=== PATIENT | male | born 1960 | race African-American/Black ===

== ENCOUNTER 2017-10-25 11:23 | Inpatient (IN) | payer OTHER ==
[~2017-10-25] VITALS: Ht 198.1 cm; Wt 123.8 kg
[2017-10-25 12:27] LABS: Basophils # (auto) 0.1 uL; Basophils % (auto) 0.8 % (0.0-2.0); Eosinophils # (auto) 0 uL; Eosinophils % (auto) 0.5 % (0.0-7.0); Hematocrit 45.8 % (41.0-53.0); Hemoglobin 14.8 g/dL (13.5-17.5); Lymphocytes # (auto) 1.9 uL; Lymphocytes % (auto) 28.4 % (10.0-50.0); Mean Corpuscular Hemoglobin 30.9 pg (28.0-32.0); Mean Corpuscular Hgb Conc. 32.4 g/dL (32.0-36.0); Mean Corpuscular Volume 95.3 fL (80.0-100.0); Monocytes # (auto) 0.6 uL; Monocytes % (auto) 8.5 % (0.0-12.0); Neutrophils # (auto) 4.1 uL; Neutrophils % (auto) 61.8 % (37.0-80.0); Nucleated Red Blood Cells % 0.2 %; Platelet Count (auto) 245 10^3/uL (140-450); White Blood Cell 6.6 10^3/uL (4.4-10.8)
[2017-10-25 12:39] LABS: Albumin 3.7 g/dL (3.4-5.0); BUN/Creatinine Ratio 16.1; Bilirubin, Total 0.4 mg/dL (0.2-1.0); Calcium 8.6 mg/dL (8.5-10.1); Magnesium 2.7 mg/dL (1.6-2.6); Potassium 3.7 mmol/L (3.5-5.1); Total Protein 8.2 g/dL (6.4-8.2)
[2017-10-25 12:49] LABS: Urine Bacteria FEW /hpf (None Seen); Urine Blood 1+ /uL (Negative); Urine Specific Gravity 1.006 (1.001-1.035); Urine WBC <1 /hpf (0 - 3)
[2017-10-25] MEDS ORDERED: ASPirin 81 mg TAB PO ONE (13:30)
[2017-10-25 14:21] LABS: INR 1.01 (0.9-1.15); Partial Thromboplastin Time 28.9 sec (22.64-33.71)
[2017-10-25] MEDS ORDERED: DILTIAZEM HCL 25 MG/5 ML VIAL IV ONE (14:45)
[2017-10-25] MEDS ORDERED: LABETALOL HCL 5 MG/ML ML 20ML VIAL IV ONE (15:00)
[2017-10-25] MEDS ORDERED: IOHEXOL 350 MG/ML 100ML IJ ONE (15:11)
[2017-10-25] MEDS ORDERED: DILTIAZEM HCL 60 MG TAB PO ONE (17:00)
[2017-10-25] MEDS ORDERED: DIGOXIN (250MCG/ML) 2 ML AMPULE IV STA (18:08)
[2017-10-25] MEDS ORDERED: NITROGLYCERIN 0.4 MG SL TAB SL PRN (18:15)
[2017-10-25] MEDS ORDERED: LABETALOL HCL 5 MG/ML ML 20ML VIAL IV PRN (18:15)
[2017-10-25] MEDS ORDERED: MORPHINE SULFATE 4 MG/ML SYR/VIAL IV PRN (18:15)
[2017-10-25 18:57] LABS: Alcohol, Urine < 3.0 mg/dL (0-5); Amphetamine Screen, Urine NEGATIVE (NEGATIVE); Barbiturate Scree,Urine NEGATIVE (NEGATIVE); Benzodiazephine Screen, Urine NEGATIVE (NEGATIVE); Cannabinoid Screen, Urine NEGATIVE (NEGATIVE); Cocaine Screen, Urine NEGATIVE (NEGATIVE); Opiate Scree,Urine NEGATIVE (NEGATIVE); Phencyclidine Screen, Urine NEGATIVE (NEGATIVE)
[2017-10-25 21:00] VITALS: BP 130/82
[2017-10-25] MEDS: METOPROLOL TARTRATE 50 MG TAB PO SCH (21:27)
[2017-10-25 21:57] VITALS: BP 130/82
[2017-10-25] MEDS ORDERED: LISI40TA PO (23:27)
[2017-10-25] MEDS ORDERED: METO-159 PO (23:27)
[2017-10-25] MEDS ORDERED: ASPI-231 PO (23:28)
[2017-10-25] MEDS ORDERED: HYDR25TA4 PO (23:28)
[2017-10-26] MEDS ORDERED: ENOXAPARIN SOD 150 MG/1 ML SYRINGE SC SCH (04:00)
[2017-10-26 05:02] VITALS: BP 129/59
[2017-10-26 08:00] VITALS: BP 114/68
[2017-10-26 09:03] VITALS: BP 114/68
[2017-10-26] MEDS: METOPROLOL TARTRATE 50 MG TAB PO SCH ×2 (09:43→21:30)
[2017-10-26] MEDS: DIGOXIN 0.25 MG TAB PO SCH (09:44)
[2017-10-26] MEDS: HYDROcodone-ACET 10/325MG TAB PO PRN ×2 (09:45→21:31)
[2017-10-26] MEDS: LISINOPRIL 20 MG TAB PO SCH (09:46)
[2017-10-26 13:00] VITALS: BP 116/60
[2017-10-26 17:00] VITALS: BP 100/67
[2017-10-26] MEDS ORDERED: WARFARIN SODIUM 10 MG TAB PO ONE (17:00)
[2017-10-26] MEDS: ENOXAPARIN SOD 150 MG/1 ML SYRINGE SC SCH (18:24)
[2017-10-26 22:00] VITALS: BP 117/74
[2017-10-27 05:00] VITALS: BP 104/63
[2017-10-27] MEDS: ENOXAPARIN SOD 150 MG/1 ML SYRINGE SC SCH ×2 (05:42→18:21)
[2017-10-27 06:45] LABS: Basophils # (auto) 0.1 uL; Basophils % (auto) 1.5 % (0.0-2.0); Eosinophils # (auto) 0.2 uL; Eosinophils % (auto) 3.8 % (0.0-7.0); Hematocrit 37.9 % (41.0-53.0); Hemoglobin 12.6 g/dL (13.5-17.5); Lymphocytes # (auto) 2.9 uL; Lymphocytes % (auto) 51.9 % (10.0-50.0); Mean Corpuscular Hemoglobin 30.6 pg (28.0-32.0); Mean Corpuscular Hgb Conc. 33.3 g/dL (32.0-36.0); Mean Corpuscular Volume 91.9 fL (80.0-100.0); Monocytes # (auto) 0.6 uL; Monocytes % (auto) 11.1 % (0.0-12.0); Neutrophils # (auto) 1.8 uL; Neutrophils % (auto) 31.7 % (37.0-80.0); Nucleated Red Blood Cells % 0.2 %; Platelet Count (auto) 275 10^3/uL (140-450); Red Blood Cells 4.12 10^6/uL (4.5-5.90); Red Cell Distribution Width 14.9 % (11.8-14.3); White Blood Cell 5.7 10^3/uL (4.4-10.8)
[2017-10-27 06:56] LABS: INR 1.01 (0.9-1.15); Partial Thromboplastin Time 32.7 sec (22.64-33.71)
[2017-10-27] MEDS: HYDROcodone-ACET 10/325MG TAB PO PRN (07:49)
[2017-10-27 08:00] VITALS: BP 130/73
[2017-10-27 09:00] VITALS: BP 130/73
[2017-10-27] MEDS: DIGOXIN 0.25 MG TAB PO SCH (10:20)
[2017-10-27] MEDS: METOPROLOL TARTRATE 50 MG TAB PO SCH ×2 (10:20→22:03)
[2017-10-27] MEDS: LISINOPRIL 20 MG TAB PO SCH (10:21)
[2017-10-27] MEDS: AMIODARONE HCL 200 MG TAB PO SCH ×2 (10:21→22:04)
[2017-10-27] MEDS ORDERED: LACTULOSE 20Gm/30ML SOLN PO PRN (12:30)
[2017-10-27 13:00] VITALS: BP 123/79
[2017-10-27] MEDS ORDERED: ONDANSETRON HCL 4 MG/2 ML VIAL ONE (15:01)
[2017-10-27 17:00] VITALS: BP 105/69
[2017-10-27] MEDS ORDERED: WARFARIN SODIUM 2.5 MG TAB PO ONE (17:00)
[2017-10-27 22:00] VITALS: BP 121/81
[2017-10-27] MEDS: ZOLPIDEM TARTRATE 5 MG TAB PO PRN (22:05)
[2017-10-28 05:09] VITALS: BP 109/69
[2017-10-28] MEDS: ENOXAPARIN SOD 150 MG/1 ML SYRINGE SC SCH ×2 (06:20→17:32)
[2017-10-28 07:39] LABS: INR 1.03 (0.9-1.15); Partial Thromboplastin Time 32.5 sec (22.64-33.71); Prothrombin Time 11.2 sec (9.37-12.3)
[2017-10-28 09:00] VITALS: BP 95/64
[2017-10-28] MEDS: LISINOPRIL 20 MG TAB PO SCH (10:00)
[2017-10-28] MEDS: METOPROLOL TARTRATE 50 MG TAB PO SCH ×2 (10:00→21:43)
[2017-10-28] MEDS: AMIODARONE HCL 200 MG TAB PO SCH ×2 (10:05→21:44)
[2017-10-28] MEDS: DIGOXIN 0.25 MG TAB PO SCH (10:06)
[2017-10-28 13:00] VITALS: BP 117/74
[2017-10-28] MEDS: ONDANSETRON HCL 4 MG/2 ML VIAL IV PRN (14:07)
[2017-10-28 14:28] LABS: INR 1.15 (0.9-1.15); Prothrombin Time 12.5 sec (9.37-12.3)
[2017-10-28 17:00] VITALS: BP 135/65
[2017-10-28] MEDS ORDERED: WARFARIN SODIUM 2.5 MG TAB PO ONE (17:00)
[2017-10-28] MEDS: HYDROcodone-ACET 10/325MG TAB PO PRN (17:30)
[2017-10-28] MEDS: ZOLPIDEM TARTRATE 5 MG TAB PO PRN (21:42)
[2017-10-28 22:12] VITALS: BP 125/77
[2017-10-29] VITALS (7 sets, daily range): BP systolic 119–151; BP diastolic 74–96
[2017-10-29] MEDS: ENOXAPARIN SOD 150 MG/1 ML SYRINGE SC SCH ×2 (05:30→18:29)
[2017-10-29] MEDS: DIGOXIN 0.25 MG TAB PO SCH (09:47)
[2017-10-29] MEDS: METOPROLOL TARTRATE 25 MG TAB PO SCH ×2 (09:47→23:06)
[2017-10-29] MEDS: AMIODARONE HCL 200 MG TAB PO SCH ×2 (09:48→23:06)
[2017-10-29] MEDS: LISINOPRIL 20 MG TAB PO SCH (10:00)
[2017-10-29] MEDS: ONDANSETRON HCL 4 MG/2 ML VIAL IV PRN (20:02)
[2017-10-29] MEDS: ZOLPIDEM TARTRATE 5 MG TAB PO PRN (23:06)
[2017-10-30] MEDS: ENOXAPARIN SOD 150 MG/1 ML SYRINGE SC SCH ×2 (05:05→17:33)
[2017-10-30 05:26] VITALS: BP 125/77
[2017-10-30 06:45] LABS: INR 1.19 (0.9-1.15)
[2017-10-30 07:01] LABS: BUN/Creatinine Ratio 12.9; Calcium 8.5 mg/dL (8.5-10.1); Potassium 4.3 mmol/L (3.5-5.1)
[2017-10-30] MEDS: HYDROcodone-ACET 10/325MG TAB PO PRN ×3 (08:12→17:25)
[2017-10-30] MEDS ORDERED: MIDAZOLAM HCL 5 MG/ML-1ML VIAL IV ONE (09:15)
[2017-10-30] MEDS ORDERED: fentaNYL CITRATE 100 MCG/2 ML VL IV ONE (09:15)
[2017-10-30] MEDS ORDERED: BENZOCAINE (DENTAL) 20 % SPRAY 60ML MT ONE (09:30)
[2017-10-30] MEDS ORDERED: LIDOCAINE VISCOUS 2% 15ML UD PO ONE (09:30)
[2017-10-30] MEDS: AMIODARONE HCL 200 MG TAB PO SCH ×2 (10:00→20:42)
[2017-10-30] MEDS: METOPROLOL TARTRATE 25 MG TAB PO SCH ×2 (10:00→20:43)
[2017-10-30] MEDS: LISINOPRIL 20 MG TAB PO SCH (10:00)
[2017-10-30] MEDS: DIGOXIN 0.25 MG TAB PO SCH (10:00)
[2017-10-30] MEDS ORDERED: MIDAZOLAM HCL 1MG/1ML-2 ML VIAL IV ONE ×2 (10:15→11:15)
[2017-10-30 10:26] VITALS: BP 105/82
[2017-10-30] MEDS ORDERED: METOPROLOL TARTRATE 1MG/1ML-5ML VIAL IV ONE ×3 (10:43→11:15)
[2017-10-30] MEDS ORDERED: MIDAZOLAM HCL 1MG/1ML-2 ML VIAL ONE (10:54)
[2017-10-30 13:00] VITALS: BP 107/83
[2017-10-30 16:36] VITALS: BP 148/79
[2017-10-30] MEDS: ZOLPIDEM TARTRATE 5 MG TAB PO PRN (20:43)
[2017-10-30 21:46] VITALS: BP 139/80
[2017-10-31] MEDS ORDERED: THROAT LOZENGES(CEPASTAT) MT PRN (01:30)
[2017-10-31] MEDS: HYDROcodone-ACET 10/325MG TAB PO PRN ×5 (01:31→18:55)
[2017-10-31 04:38] VITALS: BP 123/83
[2017-10-31] MEDS: ENOXAPARIN SOD 150 MG/1 ML SYRINGE SC SCH ×2 (05:57→17:12)
[2017-10-31 08:35] VITALS: BP 148/84
[2017-10-31] MEDS: AMIODARONE HCL 200 MG TAB PO SCH ×2 (10:04→23:21)
[2017-10-31] MEDS: METOPROLOL TARTRATE 25 MG TAB PO SCH ×2 (10:05→23:22)
[2017-10-31] MEDS: LISINOPRIL 20 MG TAB PO SCH (10:05)
[2017-10-31] MEDS: DIGOXIN 0.25 MG TAB PO SCH (10:06)
[2017-10-31 12:34] VITALS: BP 142/82
[2017-10-31] MEDS ORDERED: WARFARIN SODIUM 10 MG TAB PO ONE (17:00)
[2017-10-31] MEDS ORDERED: WARFARIN SODIUM 2.5 MG TAB PO ONE (17:00)
[2017-10-31 17:14] VITALS: BP 160/89
[2017-10-31 22:00] VITALS: BP 148/94
[2017-10-31] MEDS: ZOLPIDEM TARTRATE 5 MG TAB PO PRN (23:21)
[2017-11-01 05:00] VITALS: BP 127/90
[2017-11-01] MEDS: ENOXAPARIN SOD 150 MG/1 ML SYRINGE SC SCH ×2 (06:20→17:45)
[2017-11-01 06:27] LABS: INR 1.08 (0.9-1.15); Partial Thromboplastin Time 32.2 sec (22.64-33.71); Prothrombin Time 11.8 sec (9.37-12.3)
[2017-11-01 08:00] VITALS: BP 140/79
[2017-11-01 09:00] VITALS: BP 148/91
[2017-11-01] MEDS: AMIODARONE HCL 200 MG TAB PO SCH ×2 (12:13→23:03)
[2017-11-01] MEDS: LISINOPRIL 20 MG TAB PO SCH (12:14)
[2017-11-01] MEDS: DIGOXIN 0.25 MG TAB PO SCH (12:14)
[2017-11-01] MEDS: METOPROLOL TARTRATE 25 MG TAB PO SCH ×2 (12:14→23:03)
[2017-11-01 13:00] VITALS: BP 161/93
[2017-11-01] MEDS: HYDROcodone-ACET 10/325MG TAB PO PRN (14:08)
[2017-11-01] MEDS ORDERED: WARFARIN SODIUM 10 MG TAB PO ONE (17:00)
[2017-11-01 17:15] VITALS: BP 151/98
[2017-11-01] MEDS: ONDANSETRON HCL 4 MG/2 ML VIAL IV PRN (19:29)
[2017-11-01 22:00] VITALS: BP 151/84
[2017-11-01] MEDS: ZOLPIDEM TARTRATE 5 MG TAB PO PRN (23:02)
[2017-11-02 05:00] VITALS: BP 134/71
[2017-11-02] MEDS: ENOXAPARIN SOD 150 MG/1 ML SYRINGE SC SCH ×2 (06:01→16:45)
[2017-11-02 07:36] LABS: INR 1.47 (0.9-1.15); Prothrombin Time 16.1 sec (9.37-12.3)
[2017-11-02 08:20] VITALS: BP 134/71
[2017-11-02 09:00] VITALS: BP 145/81
[2017-11-02] MEDS: DIGOXIN 0.25 MG TAB PO SCH (09:56)
[2017-11-02] MEDS: AMIODARONE HCL 200 MG TAB PO SCH ×2 (09:56→21:38)
[2017-11-02] MEDS: METOPROLOL TARTRATE 25 MG TAB PO SCH ×2 (09:57→21:40)
[2017-11-02] MEDS: LISINOPRIL 20 MG TAB PO SCH (09:57)
[2017-11-02 17:00] VITALS: BP 139/73
[2017-11-02] MEDS ORDERED: WARFARIN SODIUM 10 MG TAB PO ONE (17:00)
[2017-11-02] MEDS: HYDROcodone-ACET 10/325MG TAB PO PRN (19:44)
[2017-11-02] MEDS: ZOLPIDEM TARTRATE 5 MG TAB PO PRN (21:41)
[2017-11-02 22:00] VITALS: BP 146/76
[2017-11-03 06:04] LABS: Basophils # (auto) 0.2 uL; Basophils % (auto) 3.2 % (0.0-2.0); Eosinophils # (auto) 0.2 uL; Eosinophils % (auto) 3.1 % (0.0-7.0); Hematocrit 39.9 % (41.0-53.0); Hemoglobin 13.6 g/dL (13.5-17.5); Lymphocytes # (auto) 2.2 uL; Lymphocytes % (auto) 40.1 % (10.0-50.0); Mean Corpuscular Hgb Conc. 34.1 g/dL (32.0-36.0); Mean Corpuscular Volume 90.9 fL (80.0-100.0); Monocytes # (auto) 0.7 uL; Monocytes % (auto) 13.4 % (0.0-12.0); Neutrophils # (auto) 2.2 uL; Neutrophils % (auto) 40.2 % (37.0-80.0); Nucleated Red Blood Cells % 0.3 %; Platelet Count (auto) 286 10^3/uL (140-450); Red Blood Cells 4.39 10^6/uL (4.5-5.90); Red Cell Distribution Width 15.1 % (11.8-14.3); White Blood Cell 5.6 10^3/uL (4.4-10.8)
[2017-11-03] MEDS: ENOXAPARIN SOD 150 MG/1 ML SYRINGE SC SCH (06:04)
[2017-11-03 06:09] LABS: INR 1.9 (0.9-1.15); Prothrombin Time 20.8 sec (9.37-12.3)
[2017-11-03 06:20] LABS: Calcium 8.8 mg/dL (8.5-10.1); Potassium 3.8 mmol/L (3.5-5.1)
[2017-11-03 06:23] LABS: BUN/Creatinine Ratio 14.3
[2017-11-03 07:20] VITALS: BP 119/83
[2017-11-03 08:00] VITALS: BP 137/77
[2017-11-03 08:42] VITALS: BP 125/80
[2017-11-03] MEDS: METOPROLOL TARTRATE 25 MG TAB PO SCH (10:32)
[2017-11-03] MEDS: AMIODARONE HCL 200 MG TAB PO SCH (10:32)
[2017-11-03] MEDS: DIGOXIN 0.25 MG TAB PO SCH (10:32)
[2017-11-03] MEDS: LISINOPRIL 20 MG TAB PO SCH (10:33)
[2017-11-03] MEDS: HYDROcodone-ACET 10/325MG TAB PO PRN (12:18)
[2017-11-03] MEDS ORDERED: AMI200T PO (12:27)
[2017-11-03] MEDS ORDERED: DIGO0.2527 PO (12:27)
[2017-11-03 12:45] VITALS: BP 139/77
[2017-11-03 12:47] VITALS: BP 139/77
== END 2017-11-03 14:19 | DRG 308 ==
LOC: ER 11:23 → TELE 11:24 → EEVIPCON 11:24 → EAST 20:47 → TELE-E-ADS 10-29 21:39
PROVIDERS: ADMIT Internal Medicine; ATTEND Internal Medicine
PROC: B24BZZ4 Ultrasonography of Heart with Aorta, Transesophageal (ICD-10-PCS; principal; 2017-10-30)
PROC: 5A2204Z Restoration of Cardiac Rhythm, Single (ICD-10-PCS; 2017-10-30)
DX: I48.91 Unspecified atrial fibrillation (principal); I50.43 Acute on chronic combined systolic (congestive) and diastolic (congestive) heart failure; I11.0 Hypertensive heart disease with heart failure; R79.1 Abnormal coagulation profile; E66.9 Obesity, unspecified; Z82.49 Family history of ischemic heart disease and other diseases of the circulatory system; Z83.3 Family history of diabetes mellitus; Z68.31 Body mass index [BMI] 31.0-31.9, adult; Z71.89 Other specified counseling
CPT/HCPCS: 36415; 71045; 71275; 80048; 80053; 80162; 80307; 81001; 83735; 83880; 84443; 84484; 85025; 85379; 85610; 85730; 87081; 92960; 93005; 93312; 94761; 96374; 96375; 99152; J2250; J2405

== ENCOUNTER 2018-01-12 20:52 | Inpatient (IN) | payer OTHER ==
[~2018-01-12] VITALS: Ht 193 cm; Wt 106.0 kg
[~2018-01-12 20:52] MED LIST: AMI200T PO; DIGO0.2527 PO; HYDR25TA4 PO; LISI40TA PO
[2018-01-12] MEDS ORDERED: ZOLPIDEM TARTRATE 5 MG TAB PO PRN (21:45)
[2018-01-12] MEDS ORDERED: DIGOXIN (250MCG/ML) 2 ML AMPULE IV ONE (21:45)
[2018-01-12] MEDS ORDERED: NITROGLYCERIN 0.4 MG SL TAB SL PRN (21:45)
[2018-01-12] MEDS ORDERED: ONDANSETRON HCL 4 MG/2 ML VIAL IV PRN (21:45)
[2018-01-12] MEDS ORDERED: MORPHINE SULFATE 8mg/ml INJ SDV IV PRN (21:45)
[2018-01-12 22:00] VITALS: BP 149/83
[2018-01-12] MEDS ORDERED: MORPHINE SULFATE 10 MG/ML INJ 1ML SDV IV PRN (22:00)
[2018-01-12] MEDS ORDERED: DIGOXIN (250MCG/ML) 2 ML AMPULE ONE (22:15)
[2018-01-12] MEDS: PANTOPRAZOLE 40 MG/10 ML VIAL IV SCH (22:39)
[2018-01-12] MEDS: METOPROLOL TARTRATE 50 MG TAB PO SCH (22:40)
[2018-01-13] VITALS (8 sets, daily range): BP systolic 94–140; BP diastolic 67–86
[2018-01-13] MEDS ORDERED: AMIODARONE HCL 900 MG in DEXTROSE 500 ML IV SCH ×2 (00:13→06:13)
[2018-01-13] MEDS ORDERED: AMIODARONE HCL 150 MG in D5W 5% 100 ML IV ONE (00:15)
[2018-01-13] MEDS ORDERED: METO25TA62 PO (00:38)
[2018-01-13] MEDS ORDERED: AMIODARONE HCL 900 MG IV ONE (01:29)
[2018-01-13] MEDS ORDERED: AMIODARONE HCL (50 MG/ ML) 3 ML VIAL IV ONE (01:29)
[2018-01-13] MEDS: PANTOPRAZOLE 40 MG/10 ML VIAL IV SCH ×2 (10:09→21:56)
[2018-01-13] MEDS: METOPROLOL TARTRATE 50 MG TAB PO SCH ×2 (10:10→22:07)
[2018-01-13] MEDS: DIGOXIN 0.125 MG TAB PO SCH (10:11)
[2018-01-13] MEDS: AMIODARONE HCL 200 MG TAB PO SCH ×2 (10:12→21:56)
[2018-01-13 10:17] LABS: Urine Bacteria NONE SEEN /hpf (None Seen); Urine Blood 1+ /uL (Negative); Urine Mucus FEW (None Seen); Urine Specific Gravity 1.016 (1.001-1.035); Urine WBC 1 /hpf (0 - 3)
[2018-01-13 10:55] LABS: Basophils # (auto) 0.1 uL; Basophils % (auto) 1.5 % (0.0-2.0); Eosinophils # (auto) 0.2 uL; Eosinophils % (auto) 3.5 % (0.0-7.0); Hematocrit 43.7 % (41.0-53.0); Hemoglobin 14.7 g/dL (13.5-17.5); Lymphocytes % (auto) 40.5 % (10.0-50.0); Mean Corpuscular Hemoglobin 30.9 pg (28.0-32.0); Mean Corpuscular Hgb Conc. 33.6 g/dL (32.0-36.0); Mean Corpuscular Volume 91.9 fL (80.0-100.0); Monocytes # (auto) 0.6 uL; Monocytes % (auto) 11.5 % (0.0-12.0); Neutrophils # (auto) 2.1 uL; Nucleated Red Blood Cells % 0.3 %; Platelet Count (auto) 264 10^3/uL (140-450); Red Blood Cells 4.75 10^6/uL (4.5-5.90)
[2018-01-13 11:08] LABS: INR 0.98 (0.9-1.15); Partial Thromboplastin Time 29.4 sec (23.78-33.04); Prothrombin Time 10.5 sec (9.27-12.13)
[2018-01-13 11:26] LABS: % Iron Saturation 31.8 % (20-55)
[2018-01-13 11:36] LABS: Folate (Folic Acid) 12.6 ng/mL (5.38-24)
[2018-01-14 04:49] VITALS: BP 113/73
[2018-01-14 08:00] VITALS: BP 130/80
[2018-01-14 08:49] VITALS: BP 130/80
[2018-01-14] MEDS: PANTOPRAZOLE 40 MG/10 ML VIAL IV SCH (09:27)
[2018-01-14] MEDS: DIGOXIN 0.125 MG TAB PO SCH (09:28)
[2018-01-14] MEDS: AMIODARONE HCL 200 MG TAB PO SCH (09:28)
[2018-01-14] MEDS: METOPROLOL TARTRATE 50 MG TAB PO SCH (09:29)
[2018-01-14 09:38] VITALS: BP 135/72
[2018-01-14 13:21] VITALS: BP 139/86
== END 2018-01-14 13:00 | disposition left against medical advice (07) | DRG 281 ==
LOC: TELE-E-ADS 20:52 → EEVIPCON 20:52 → DOU IN ICU 01-13 01:05 → TELE-E-ADS 01-14 00:05
PROVIDERS: ADMIT Internal Medicine; ATTEND Internal Medicine
DX: I21.9 Acute myocardial infarction, unspecified (principal); D68.69 Other thrombophilia; I48.91 Unspecified atrial fibrillation; Z53.21 Procedure and treatment not carried out due to patient leaving prior to being seen by health care provider; D64.9 Anemia, unspecified; I10 Essential (primary) hypertension; Z79.01 Long term (current) use of anticoagulants; Z79.899 Other long term (current) drug therapy; Z82.49 Family history of ischemic heart disease and other diseases of the circulatory system; Z83.3 Family history of diabetes mellitus; Z98.1 Arthrodesis status
CPT/HCPCS: 36415; 81001; 82607; 82746; 83540; 83550; 84484; 85025; 85045; 85610; 85730; 87081; 93005; C9113; J7060